=== PATIENT | female | born 1980 | race Hispanic/Latino ===

== ENCOUNTER 2018-12-27 14:52 | Emergency (ER) | payer SELFPAY ==
--- NOTE | 2018-12-27 15:55 | RAD ---
F3 views left shoulder. HISTORY: Left shoulder pain. AP internally, externally and scapular Y views left shoulder obtained. No evidence of acute fractures, subluxations or bony lesion seen. IMPRESSION: Normal 3 views left shoulder.
[2018-12-27] MEDS ORDERED: Ketorolac Tromethamine 60 MG/2 ML VIAL ONE (16:37)
== END 2018-12-27 16:48 | disposition home or self-care (01) ==
LOC: ERS 14:52
DX: M75.92 Shoulder lesion, unspecified, left shoulder (principal); Z87.891 Personal history of nicotine dependence; Z79.899 Other long term (current) drug therapy
CPT/HCPCS: 93005; 96372; J1885

== ENCOUNTER 2019-01-04 11:09 | Emergency (ER) | payer SELFPAY ==
[2019-01-04 11:42] LABS: #Eosinphils 0.2 thou/uL (0.0-0.7); #Monocytes 0.8 thou/uL (0.11-0.59); #Neutrophils 6.3 thou/uL (1.40-6.50); %Basophils 0.2 % (0.0-1.0); %Eosinophils 2.4 % (0.0-10.0); %Lymphocytes 21.3 % (21.0-51.0); %Monocytes 8.4 % (0.0-10.0); %Neutrophils 67.6 % (42.0-75.0); Hemoglobin 13.9 g/dL (12.0-16.0); Mean Corpuscular HGB CONC 32.4 g/dL (32.0-36.0); Mean Corpuscular Hemoglobin 29.7 pg (27.0-31.0); Mean Corpuscular Volume 91.7 fL (78.0-98.0); Mean Platelet Volume 8.4 fL (7.4-10.4); Platelet Count 249 thou/uL (130-400); RBC Distribution Width 12.4 % (11.5-14.5); Red Blood Cell (RBC) Count 4.67 mill/uL (4.20-5.40); White Blood Cell (WBC) Count 9.3 thou/uL (4.8-10.8)
[2019-01-04 11:51] LABS: Bilirubin Negative (Negative); Blood, Urine Negative (Negative); Clarity CLEAR (Clear); Glucose, Urine (Dipstick) Negative (Negative); Leukocyte Negative (Negative); Nitrite Negative (Negative); Protein, Urine (Dipstick) Negative (Neg-Trace); Specific Gravity, Urine 1.024 (1.002-1.036)
[2019-01-04 12:15] LABS: ALT (SGPT) 36 U/L (8-55); AST (SGOT) 22 U/L (5-34); Albumin 3.7 g/dL (3.5-5.0); Alkaline Phosphatase 70 U/L (40-150); Anion Gap 10 mmol/L (10-20); BUN (Urea Nitrogen) 10 mg/dL (7.0-18.7); Bilirubin, Total 0.5 mg/dL (0.2-1.2); Calc. Creatinine Clearance 0 mL/min (70-130); Calcium 8.7 mg/dL (7.8-10.44); Carbon Dioxide 26 mmol/L (22-29); Chloride 105 mmol/L (98-107); Estimated GFR-MDRD Greater than 90; Globulin 3.7 g/dL (2.4-3.5); Glucose 91 mg/dL (70-105); Lipase 4 U/L (8-78); Potassium 3.9 mmol/L (3.5-5.1); Protein, Total 7.4 g/dL (6.0-8.3); Sodium 137 mmol/L (136-145)
[2019-01-04 14:24] LABS: BHCG - Serum Negative (NEGATIVE); Pregs Control Background? CLEAR/WHITE (CLR/WHITE); Pregs Control Bar Appear? YES (CONTROL BAR)
--- NOTE | 2019-01-04 15:41 | ULT ---
US Gallbladder RUQ History: [Right upper quadrant abdominal pain.] Comparison: Ultrasound 2011 Findings: Real-time grayscale, color evaluation of the right upper quadrant of the abdomen was perfor med. Visualized portion of the IVC is unremarkable. Pancreas is unremarkable. Diffuse increased hepatic echotexture without mass. No gallbladder wall thickening. Portal vein is pa tent with antegrade flow. Common bile duct measures just under 6 mm. No cholelithiasis. Right kidney measures 12.1 x 4.9 x 5 cm without mass, hydronephrosis, or abnormal calcifications. Impression: Diffuse hepatic steatosis. No acute gallbladder pathology.
== END 2019-01-04 16:07 | disposition home or self-care (01) ==
LOC: ERS 11:09
DX: K29.70 Gastritis, unspecified, without bleeding (principal); F41.9 Anxiety disorder, unspecified; F17.210 Nicotine dependence, cigarettes, uncomplicated; F32.9 Major depressive disorder, single episode, unspecified; Z79.899 Other long term (current) drug therapy
CPT/HCPCS: 36415; 76705; 80053; 81003; 83690; 84703; 85025

== ENCOUNTER 2019-05-04 20:38 | Emergency (ER) | payer MEDICAID, SELFPAY ==
--- NOTE | 2019-05-04 22:15 | RAD ---
XR Chest Pa Lat STANDARD History: Abdominal pain. Chest pain. Comparison: Radiograph 2010 Findings: Lungs are clear. No pneumothorax or effusion. Cardiac silhouette and mediastinal contours a re within normal limits. No acute osseous abnormality. Left distal clavicular osteolysis. Impression: No acute intrathoracic abnormality.
[2019-05-04] MEDS ORDERED: Ketorolac Tromethamine 30 MG/ML VIAL ONE (22:28)
== END 2019-05-04 22:37 | disposition home or self-care (01) ==
LOC: ERS 20:38
DX: R07.81 Pleurodynia (principal); F41.9 Anxiety disorder, unspecified; F32.9 Major depressive disorder, single episode, unspecified; F17.210 Nicotine dependence, cigarettes, uncomplicated; Z79.899 Other long term (current) drug therapy
CPT/HCPCS: 71046; 93005; J1885

== ENCOUNTER 2019-08-21 23:08 | Emergency (ER) | payer MEDICAID, SELFPAY ==
--- NOTE | 2019-08-22 06:29 | RAD ---
PORTABLE CHEST 1 VIEW: Date: 08/21/19 Time: 2335 hours HISTORY: Cough. Congestion. FINDINGS: The heart size is normal. The lungs are expanded without focal areas of consolidation, pneumothoraces , or pleural effusions. IMPRESSION: No radiographic evidence of acute cardiopulmonary process. POS: OFF
== END 2019-08-22 01:00 | disposition home or self-care (01) ==
LOC: ERS 23:08
DX: J06.9 Acute upper respiratory infection, unspecified (principal); F17.210 Nicotine dependence, cigarettes, uncomplicated
CPT/HCPCS: 71045

== ENCOUNTER 2021-07-06 11:59 | Outpatient (CLI) | payer BC | END 2021-07-06 12:00 | disposition home or self-care (01) | LOC: BICMAMMO 11:59 | PROVIDERS: ATTEND Family Medicine | DX: Z12.31 Encounter for screening mammogram for malignant neoplasm of breast (principal) | CPT/HCPCS: 77063; 77067 ==

== ENCOUNTER 2023-09-24 02:26 | Emergency (ER) | payer BC, SELFPAY ==
[2023-09-24] MEDS ORDERED: Ibuprofen 200 MG TAB ONE (03:01)
== END 2023-09-24 03:26 | disposition home or self-care (01) ==
LOC: ERS 02:26
DX: U07.1 COVID-19 (principal); F17.210 Nicotine dependence, cigarettes, uncomplicated
CPT/HCPCS: 99283